=== PATIENT | female | born 1975 | race Two or more races ===

== ENCOUNTER 2019-02-15 08:54 | Emergency (ER) | payer MEDICAID ==
[~2019-02-15] VITALS: Ht 154.9 cm; Wt 68.0 kg
[2019-02-15 08:56] VITALS: BP 121/61
--- NOTE | 2019-02-15 09:05 | NUR ---
ED Nurse Note: PT WALKED IN DUE TO PRODUCTIVE COUGHING X 3 WEEKS. AFEBRILE UPON TRIAGE. AAO X4 AND AMBULATORY. NO RESPIRATORY DISTRESS.
--- NOTE | 2019-02-15 09:45 | Emergency Room Report ---
History of Present Illness General Chief Complaint: Upper Respiratory Illness Source: Patient Present Illness HPI This patient states that she has had 2 weeks of cough with production of white phlegm. She denies fever chills. She denies nausea or vomiting. She denies chest pain. She states that she does feel short of breath at times. She states her cough is worse at night. She did see her primary care physician and was started on azithromycin. She states she went a few days of that and then felt lightheaded so she went to another clinic. At this clinic 3 days ago, she was given Augmentin, and albuterol inhaler, prednisone taper and Tessalon Perles. She states she continues to have coughing. She states his symptoms are worse at night. She has stopped using the prednisone because she states it made her lightheaded. She is currently taking Augmentin, albuterol and Tessalon Perles. She is also using [id number] Robitussin. She has no other complaints. Allergies: Coded Allergies: No Known Allergies (Unverified , 02/15/19) Patient History Past Medical History: see triage record, other - pre-diabetes Social History: Denies: smoking, alcohol use, drug use Last Menstrual Period: n/a Now: No Reviewed Nursing Documentation: PMH: Agreed; PSxH: Agreed Nursing Documentation-PMH Past Medical History: No Stated History Review of Systems All Other Systems: negative except mentioned in HPI Physical Exam Vital Signs Date Time Temp Pulse Resp B/P (MAP) Pulse Ox O2 Delivery O2 Flow Rate FiO2 02/15/19 08:56 98.6 69 18 121/61 (81) 95 Room Air Sp02 EP Interpretation: reviewed, normal General Appearance: no apparent distress, alert, GCS 15, non-toxic Head: normocephalic, atraumatic Eyes: bilateral eye normal inspection, bilateral eye PERRL ENT: hearing grossly normal, normal pharynx, no angioedema, normal voice Neck: full range of motion, supple/symm/no masses Respiratory: chest non-tender, lungs clear, normal breath sounds, no respiratory distress, no retraction, no accessory muscle use, speaking full sentences Cardiovascular #1: regular rate, rhythm, no edema Gastrointestinal: normal bowel sounds, non tender, soft, non-distended, no guarding, no rebound Rectal: deferred Musculoskeletal: back normal, gait/station normal, normal range of motion Neurologic: alert, oriented x3, responsive, motor strength/tone normal, sensory intact, speech normal Psychiatric: judgement/insight normal, memory normal, mood/affect normal, no suicidal/homicidal ideation Skin: no rash, normal color Medical Decision Making Diagnostic Impression: Primary Impression: Upper respiratory infection ER Course This patient has a clinical presentation with upper respiratory tract infection. The evaluation was very reassuring with a normal lung exam, no respiratory distress, normal pulse oximetry. I did obtain a chest x-ray which was unremarkable. I am not concerned for pneumonia in this patient. This is most likely viral and will not need antibiotic therapy, despite already being on the second course of antibiotics by an outpatient clinic. The patient already has albuterol, prednisone and Tessalon Perles. The patient's lung exam is clear. I did educate the patient to continue using the albuterol and over- the-counter cough medications as needed. She is also educated to use cool-mist and honey. This is likely a self-limiting illness. No emergency medical condition was identified. Patient is given close return precautions and follow- up instructions. Chest X-Ray Diagnostic Results Chest X-Ray Diagnostic Results : Chest X-Ray Ordered: Yes # of Views/Limited/Complete: 1 View Indication: Other - cough EP Interpretation: Yes Interpretation: no consolidation, no effusion, no pneumothorax, no acute cardiopulmonary disease Impression: No acute disease Electronically Signed by: Domi Byrd DO Last Vital Signs Date Time Temp Pulse Resp B/P (MAP) Pulse Ox O2 Delivery O2 Flow Rate FiO2 02/15/19 09:03 74 16 Room Air 02/15/19 08:56 98.6 121/61 95 Status: improved Disposition: HOME, SELF-CARE Condition: Improved Scripts No Active Prescriptions or Reported Meds Patient Instructions: Upper Respiratory Infection, Adult Domi Byrd DO Feb 15, 2019 09:45
[2019-02-15 10:10] VITALS: BP 121/61
--- NOTE | 2019-02-15 10:10 | NUR ---
ER DISCHARGE NOTE: Patient is cleared to be discharged per ERMD, pt is aox4, on room air, with stable vital signs. pt was given dc instructions, pt was able to verbalize understanding, pt is able to ambulate with steady gait. pt took all belongings.
--- NOTE | 2019-02-15 10:44 | Diagnostic Imaging Report ---
Indication: Dyspnea Comparison: None A single view chest radiograph was obtained. Findings: Cardiomediastinal appearance is within normal limits for age. The lungs are clear. Pulmonary vascularity is appropriate. The diaphragmatic contour is smooth and costophrenic angles are sharp. No pleural effusions are identified. The bones are unremarkable. Impression: No acute findings
== END 2019-02-15 10:10 | disposition home or self-care (01) ==
LOC: EMR 09:30
DX: J06.9 Acute upper respiratory infection, unspecified (principal)
CPT/HCPCS: 71045; Z7502; 99283

== ENCOUNTER 2019-11-23 11:35 | Emergency (ER) | payer MEDICAID ==
[~2019-11-23] VITALS: Ht 154.9 cm; Wt 75.7 kg
--- NOTE | 2019-11-23 12:05 | NUR ---
ED Nurse Note: Patient walked into ED from home c/o left-sided head pain that started 8 years ago, but has been exacerbated over the past 2 weeks. Pain is like a stabbing pain that radiates to left eye, left ear. Denies dizziness, fever, n/v, and vision changes. Patient AxO x 4.
[2019-11-23 12:26] VITALS: BP 134/93
[2019-11-23] MEDS ORDERED: FIORICET1 EA ORAL (12:54)
--- NOTE | 2019-11-23 12:58 | Emergency Room Report ---
History of Present Illness General Chief Complaint: Headache Source: Patient Present Illness HPI Patient is a 44-year-old female who presents after continued headaches. Patient had had multiple episodes similar to this in the past. Previous history of CT imaging and had not shown any evidence of intracranial pathology. Patient previous CT imaging of the cervical spine as well which did not show any evidence of degenerative changes at that time. Patient denies any fever. No recent trauma. Headaches have been intermittent for years. Reports having some worsening pain. Patient's headache had not changed in character. She denies any morning headaches or vomiting. She had no visual changes. She had been ambulatory without assistance. Had previously taken ibuprofen without improvement. Allergies: Coded Allergies: No Known Allergies (Unverified , 02/15/19) COVID-19 Screening Contact w/high risk pt: No Experienced COVID-19 symptoms?: No COVID-19 Testing performed [employer] REPA[employer]ER: No Patient History Past Medical History: see triage record Now: No Reviewed Nursing Documentation: PMH: Agreed; PSxH: Agreed Nursing Documentation-PMH Past Medical History: No Stated History Review of Systems All Other Systems: negative except mentioned in HPI Physical Exam Vital Signs Date Time Temp Pulse Resp B/P (MAP) Pulse Ox O2 Delivery O2 Flow Rate FiO2 11/23/19 11:50 97.9 77 18 134/93 (107) 95 Room Air Sp02 EP Interpretation: reviewed, normal General Appearance: normal inspection, well appearing, no apparent distress, alert, GCS 15 Head: atraumatic ENT: normal ENT inspection, hearing grossly normal, normal voice Neck: normal inspection, full range of motion, supple, no bony tend Respiratory: normal inspection, lungs clear, normal breath sounds, no respiratory distress, no retraction, no wheezing Cardiovascular #1: regular rate, rhythm, no edema Gastrointestinal: normal inspection, normal bowel sounds, non tender, soft, no guarding, no hernia Genitourinary: no CVA tenderness Musculoskeletal: normal inspection, back normal, normal range of motion Neurologic: alert, motor strength/tone normal, cafeteria attendant III-XII nml as tested, oriented x3, responsive, speech normal, normal inspection Psychiatric: normal inspection, judgement/insight normal, mood/affect normal Medical Decision Making Diagnostic Impression: Primary Impression: Headache ER Course Patient presented for headache. Differential diagnoses included but was not limited to skull fracture, subarachnoid hemorrhage, meningitis, aneurysm, mass lesion, intracranial hemorrhage. Patient has a benign exam and does not appear to require any imaging or laboratory testing at this time. Patient had previous CT imaging and headache appears to be typical for patient. These appear to be tension headaches. Patient is given prescription for medications for symptomatic treatment. She had previously been told that she needed MRI. Patient does not appear to have any emergent indication for MRI at this time. Patient was advised to follow-up as outpatient with her doctor for MRI testing as needed. Neurologic exam is benign and that she does not have any abnormal reflexes or alteration of her mental status. Patient was given Tylenol for headache. She is given prescription for Fioricet. She was advised to return if worse. This medical record is generated with [employer] finance associate software. There may be some finance associate discrepancies related to use of this software Last Vital Signs Date Time Temp Pulse Resp B/P (MAP) Pulse Ox O2 Delivery O2 Flow Rate FiO2 11/23/19 12:26 97.9 79 18 134/93 95 Room Air Status: improved Disposition: HOME, SELF-CARE Condition: Stable Scripts Acetamin/Butalbital/Caffeine* (FIORICET*) 1 Ea Tab 1 TAB ORAL Q6H, #15 TAB 0 Refills Prov: Octavio Flores MD 11/23/19 Patient Instructions: Tension Headache Additional Instructions: Follow up with your primary doctor for further evaluation of headaches. Return if worse. Octavio Flores MD Nov 23, 2019 12:58
[2019-11-23 13:00] VITALS: BP 130/87
[2019-11-23] MEDS ORDERED: Acetaminophen 500mg (ES) tab ORAL ONE (13:00)
--- NOTE | 2019-11-23 14:00 | NUR ---
ER DISCHARGE NOTE: Patient is cleared to be discharged per ERMD, pt is aox4, on room air, with stable vital signs. pt was given dc and prescription instructions, pt was able to verbalize understanding, pt id band removed. pt is able to ambulate with steady gait. pt took all belongings.
== END 2019-11-23 14:00 | disposition home or self-care (01) ==
LOC: EMR 11:55
DX: R51 Headache (principal)
CPT/HCPCS: 99282